=== PATIENT | female | born 1990 | race Caucasian/White ===

== ENCOUNTER 2022-03-16 07:33 | Inpatient (IN) ==
[2022-03-16] MEDS ORDERED: OXYTOCIN 30 UNITS/500 ML BAG IV PRN ×3 (07:52→23:28)
[2022-03-16 08:18] LABS: Hematocrit (blood only) 33.4 % (37-47); Hemoglobin 11.2 g/dL (12.0-16.0); Mean Corpuscular Hemoglobin 31.5 pg (25-34); Mean Corpuscular Hgb Conc 33.5 g/dL (32-36); Mean Corpuscular Volume 93.8 fL (80-100); Mean Platelet Volume 11.6 fL (7.4-10.4); Platelet Count 224 K/uL (130-400); RDW Coefficient of Variation 12.6 % (11.5-14.5); RDW Standard Deviation 43.2 fL (36.4-46.3); Red Blood Count 3.56 M/uL (4.2-5.4); White Blood Count 8.14 K/uL (4.8-10.8)
[2022-03-16] MEDS: LACTATED RINGER'S 1,000 ML IV PRN ×3 (09:17→19:35)
--- NOTE | 2022-03-16 09:22 | History & Physical Report ---
Date of Service March 16, 2022 Assessment & Plan (1) Encounter for induction of labor: (2) Chronic hypertension affecting : (3) resulting from in-vitro fertilization: Plan: admit, labs. chtn. fhts categ 1. start pitocin. plan reviewed. meds or dered. Admission and Anticipated Discharge Date Admission Date: March 16, 2022 History of Present Illness Chief Complaint: planned induction [facility] 31[facility] for planned induction for chtn. She is doing well today. Had johansen ripening balloon last pm and it fell out by midnight. Denies complaints. PNC c/b 1. CHTN 2. IVF 3. 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, spouse neg PNL rh pos, ri, gbs neg OBH: g1 GYNH: nl paps Allergies Allergy/AdvReac Type Severity Reaction Status Date / Time No Known Allergies Allergy Verified 03/15/22 10:39 Home Medications Medication Instructions Recorded Confirmed Type prenat.vits,grace,ify-nooz-xgqgg 1 tab PO DAILY 08/25/21 03/16/22 History sertraline 50 mg tablet (Zoloft) 50 mg PO DAILY 08/25/21 03/16/22 History aspirin 81 mg tablet,delayed 81 mg PO DAILY 01/26/22 03/16/22 History release (Adult Low Dose Aspirin) labetalol 200 mg tablet 300 mg PO BID tab 03/10/22 03/16/22 History Patient History Medical History (Updated 03/16/22 @ 09:20 by Romi Lora MD, FACOG) Anxiety and depression Gautam's disease Surgical History (Updated 08/30/21 @ 17:24 by Terri Atkinson MD) History of hysteroscopy S/P dilation and curettage S/P wisdom tooth extraction Family History (Updated 08/25/21 @ 13:58 by Keely Donato) Other Heart disease Thyroid disease Social History (Updated 08/25/21 @ 13:59 by Keely Donato) Smoking Status: Never smoker Hx Alcohol Use: No Hx Substance Use: No Preferred Language: Bulgarian Communication Ability: Effective 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 current occupational status: employed current occupation: government contractor Assistive Devices: None Review of Systems as per Subjective / HPI Physical Exam Constitutional: WD/WN, vitals as above Respiratory: normal respiratory effort, lungs clear to auscultation Cardiovascular: Rate/Rhythm: regular rate and regular rhythm Gastrointestinal (Abdomen): soft gravid nt efw 6-7# Musculoskeletal: no edema nontender calves Neurologic: grossly normal Psychiatric: A+Ox3, euthymic affect Genitourinary: Manual OB Exam: + cervical dilation (4), + cervical effacement 80%, + station -2 and + amniotic fluid (arom) clear OB Exam Monitor Tracing: + external FHT monitor used, + external uterine monitor used (q5), + category I and + normal FHT variability Results & Data ([facility]) Vital Signs (Past 12 Hours) Vital Signs Temp Pulse Resp BP 03/16/22 07:48 84 127/78 03/16/22 07:46 84 127/78 03/16/22 07:45 98.4 F 18 Coding Level of Care Code None Diagnoses Encounter for induction of labor Z34.90 Chronic hypertension affecting O10.919 resulting from in-vitro fertilization O09.819
--- NOTE | 2022-03-16 14:37 | Labor Progress Brief Note ---
Date of Service March 16, 2022 Subjective ctsp due to feeling pressure. Assessment & Plan (1) Chronic hypertension affecting : (2) Encounter for induction of labor: (3) resulting from in-vitro fertilization: Plan: c/w pit, no significant cx change. fhts categ 1. Admission and Anticipated Discharge Date Admission Date: March 16, 2022 Physical Exam Constitutional: WD/WN, vitals as above Genitourinary: Manual OB Exam: + cervical dilation (4), + cervical effacement 80% and + station -2 OB Exam Monitor Tracing: + external FHT monitor used, + external uterine monitor used (q3), + category I and + normal FHT variability Results & Data ([facility]) Vital Signs (Past 12 Hours) Vital Signs Temp Pulse Resp BP 03/16/22 13:39 97.9 F 80 18 125/76 03/16/22 13:30 20 03/16/22 12:39 97.9 F 76 141/91 H 03/16/22 12:33 20 03/16/22 12:00 18 03/16/22 11:41 67 125/85 03/16/22 11:30 20 03/16/22 11:20 97.9 F 18 03/16/22 11:00 18 03/16/22 10:28 80 130/82 03/16/22 09:22 81 140/87 03/16/22 07:48 84 127/78 03/16/22 07:46 84 127/78 03/16/22 07:45 98.4 F 18 Coding Level of Care Code None Diagnoses Chronic hypertension affecting O10.919 Encounter for induction of labor Z34.90 resulting from in-vitro fertilization O09.819
[2022-03-16] MEDS ORDERED: ePHEDrine sulfate 50 MG/ML AMP ONE (14:41)
[2022-03-16] MEDS ORDERED: fentaNYL citrate 100 MCG/2 ML VIAL ONE (14:42)
[2022-03-16] MEDS ORDERED: BUPIVACAINE 0.25% 30 ML VIAL ONE (14:42)
[2022-03-16] MEDS ORDERED: fentaNYL 2MCG/ML ROPIVACAINE 1.25MG/ML 100 ML BAG EPI ONE (14:42)
[2022-03-16] MEDS ORDERED: SODIUM CHLORIDE 0.9% INJ 10 ML VIAL ONE (14:42)
--- NOTE | 2022-03-16 15:07 | Anesthesiology Consultation ---
Date of Service March 16, 2022 Assessment & Plan (1) Encounter for pre-operative examination: Chart Review Chart Review: Acceptable Risk for Labor Epidural Consults Requested none ASA ASA2 Proposed Anesthesia Anesthesia Type: Labor Epidural Risk / Benefits Reviewed With: PT / POA / Parent / Guardian, Accepts Plan and Informed Consent Obtained History Height/Weight Height: 5 ft 1.5 in Weight: 91.682 kg Allergies Allergy/AdvReac Type Severity Reaction Status Date / Time No Known Allergies Allergy Verified 03/15/22 10:39 Medications Home Medications Medication Instructions Recorded Confirmed Last Taken prenat.vits,grace,lyu-tyng-seikp 1 tab PO DAILY 08/25/21 03/16/22 03/16/22 06:30 sertraline 50 mg tablet (Zoloft) 50 mg PO DAILY 08/25/21 03/16/22 03/16/22 06:30 aspirin 81 mg tablet,delayed 81 mg PO DAILY 01/26/22 03/16/22 03/15/22 18:45 release (Adult Low Dose Aspirin) labetalol 200 mg tablet 300 mg PO BID tab 03/10/22 03/16/22 03/16/22 06:30 Active Medications Generic Name Dose Route Start Last Admin Trade Name Freq PRN Reason Stop Dose Admin Oxytocin 30 units in 500 mls @ 9 mls/hr 03/16/22 07:53 03/16/22 12:33 Pitocin IV 03/18/22 07:52 0.54 units/hr .Q24H PRN 9 mls/hr Labor Induction/Augmentation Titration Protocol 0.54 UNITS/HR Lactated Ringer's 1,000 mls @ 125 mls/hr 03/16/22 07:52 03/16/22 14:51 Lr IV 03/18/22 07:51 999 mls/hr .Q8H PRN Administration L&D Protocol Protocol Past Medical History Medical History Anxiety and depression Gautam's disease Exercise / Class Metabolic Activity II 4-5 Yardwork/Stairs/Walk up hill Past Family History Family History Other Heart disease Thyroid disease Past Surgical History Surgical History History of hysteroscopy S/P dilation and curettage S/P wisdom tooth extraction Past Anesthesia History No Hx of Anesthesia Complications and No Family Hx of Anesthesia Complications History of PONV No Hx of PONV and No Hx of Motion Sickness Social History Smoking Status: Never smoker Hx Alcohol Use: No Hx Substance Use: No Physical Exam Vital Signs Last Vital Signs Temp 97.9 F 03/16/22 13:39 Pulse 80 03/16/22 13:39 Resp 18 03/16/22 13:39 BP 125/76 03/16/22 13:39 ENMT Mouth: no dentition abnormality Thyromental Distance: > or= 3.5 Finger Breadths Mallampati Class: II Neck normal visual inspection Respiratory normal respiratory effort Auscultation: lungs clear to auscultation bilaterally Cardiovascular Rate/Rhythm: regular rate and regular rhythm Testing Laboratory Results 03/16/22 08:02
[2022-03-16] MEDS ORDERED: diphenhydrAMINE 50 MG/ML VIAL IV PRN (15:45)
[2022-03-16] MEDS ORDERED: NALBUPHINE HCL INJ 10 MG/ML AMP IV PRN (15:45)
[2022-03-16] MEDS ORDERED: NALOXONE HCL 0.4 MG/1 ML VIAL/CARP IV PRN (15:45)
[2022-03-16] MEDS ORDERED: ONDANSETRON INJ 2 MG/ML 2 ML VIAL IV PRN (15:45)
[2022-03-16] MEDS ORDERED: fentaNYL 2MCG/ML ROPIVACAINE 1.25MG/ML 100 ML BAG EPI PRN (15:45)
[2022-03-16] MEDS ORDERED: NALOXONE HCL 1 MG in SODIUM CHLORIDE 0.9% 1000ML 1,000 ML IV PRN (15:45)
[2022-03-16] MEDS ORDERED: ePHEDrine sulfate 50 MG/ML AMP IV PRN (15:45)
--- NOTE | 2022-03-16 18:25 | Labor Progress Brief Note ---
Date of Service March 16, 2022 Subjective comfortable with epidural Assessment & Plan (1) Encounter for induction of labor: (2) resulting from in-vitro fertilization: (3) Chronic hypertension affecting : Plan: good cx change. fhts categ 1. c/w pit Admission and Anticipated Discharge Date Admission Date: March 16, 2022 Physical Exam Constitutional: WD/WN, vitals as above Genitourinary: Manual OB Exam: + cervical dilation 8 cm, + cervical effacement 100% and + station 0 OB Exam Monitor Tracing: + external FHT monitor used, + external uterine monitor used (q2-3), + category I and + normal FHT variability Results & Data ([facility]) Vital Signs (Past 12 Hours) Vital Signs Temp Pulse Resp BP Pulse Ox 03/16/22 18:20 84 98 03/16/22 18:15 78 97 03/16/22 18:12 93 H 115/69 03/16/22 18:10 68 98 03/16/22 18:05 78 97 03/16/22 18:00 71 96 03/16/22 17:56 76 107/57 L 03/16/22 17:55 71 96 03/16/22 17:50 65 97 03/16/22 17:45 66 16 94 03/16/22 17:42 63 108/59 L 03/16/22 17:40 69 94 03/16/22 17:35 67 96 03/16/22 17:30 98.2 F 79 16 96 03/16/22 17:27 66 103/59 L 03/16/22 17:25 62 97 03/16/22 17:20 82 97 03/16/22 17:15 70 16 96 03/16/22 17:12 74 99/57 L 03/16/22 17:10 73 95 03/16/22 17:05 73 95 03/16/22 17:00 73 16 96 03/16/22 16:57 72 101/56 L 03/16/22 16:55 74 95 03/16/22 16:50 73 96 03/16/22 16:45 73 18 98 03/16/22 16:43 73 129/57 L 03/16/22 16:42 72 122/63 03/16/22 16:40 80 99 03/16/22 16:35 74 99 03/16/22 16:30 68 18 95 03/16/22 16:29 73 94 03/16/22 16:26 66 131/79 03/16/22 16:25 74 95 03/16/22 16:20 67 97 03/16/22 16:15 70 18 98 03/16/22 16:11 72 131/79 03/16/22 16:10 70 97 03/16/22 16:08 62 127/77 03/16/22 16:05 66 122/78 97 03/16/22 16:03 64 130/77 03/16/22 16:00 68 18 99 03/16/22 15:59 83 121/83 03/16/22 15:56 78 125/77 03/16/22 15:55 75 96 03/16/22 15:53 81 130/77 03/16/22 15:50 79 122/75 96 03/16/22 15:47 76 125/83 03/16/22 15:45 97.5 F L 79 18 96 03/16/22 15:44 73 132/80 03/16/22 15:40 84 94 03/16/22 15:39 71 130/81 03/16/22 15:35 97 H 93 03/16/22 15:30 91 H 95 03/16/22 15:27 87 94 03/16/22 15:25 74 96 03/16/22 15:20 74 97 03/16/22 15:15 86 98 03/16/22 15:13 86 94 03/16/22 15:10 76 96 03/16/22 15:08 81 158/75 H 03/16/22 15:06 86 137/87 03/16/22 15:05 82 97 03/16/22 13:39 97.9 F 80 18 125/76 03/16/22 13:30 20 03/16/22 12:39 97.9 F 76 141/91 H 03/16/22 12:33 20 03/16/22 12:00 18 03/16/22 11:41 67 125/85 03/16/22 11:30 20 03/16/22 11:20 97.9 F 18 03/16/22 11:00 18 03/16/22 10:28 80 130/82 03/16/22 09:22 81 140/87 03/16/22 07:48 84 127/78 06/09/22 07:46 84 127/78 03/16/22 07:45 98.4 F 18 Coding Level of Care Code None Diagnoses Encounter for induction of labor Z34.90 resulting from in-vitro fertilization O09.819 Chronic hypertension affecting O10.919
--- NOTE | 2022-03-16 21:48 | Labor Progress Brief Note ---
Date of Service March 16, 2022 Subjective pt is pushing Assessment & Plan (1) resulting from in-vitro fertilization: (2) Chronic hypertension affecting : (3) Encounter for induction of labor: Plan: will cont with 2nd stage, fhts categ 1. Admission and Anticipated Discharge Date Admission Date: March 16, 2022 Physical Exam Constitutional: WD/WN, vitals as above Genitourinary: OB Exam Monitor Tracing: + external FHT monitor used, + external uterine monitor used (q2), + category I and + normal FHT variability Results & Data ([facility]) Vital Signs (Past 12 Hours) Vital Signs Temp Pulse Resp BP Pulse Ox 03/16/22 21:44 107 H 119/66 03/16/22 21:41 101 H 95 03/16/22 21:40 99 H 94 03/16/22 21:36 98 H 93 03/16/22 21:34 123 H 93 03/16/22 21:31 100 H 94 03/16/22 21:29 108 H 94 03/16/22 21:28 98.2 F 03/16/22 21:27 109 H 130/75 03/16/22 21:26 99 H 95 03/16/22 21:21 96 H 94 03/16/22 21:16 116 H 94 03/16/22 21:15 114 H 95 03/16/22 21:14 90 130/73 03/16/22 21:11 104 H 92 03/16/22 21:10 102 H 95 03/16/22 21:05 93 H 93 03/16/22 21:00 105 H 96 03/16/22 20:58 102 H 135/64 03/16/22 20:55 118 H 94 03/16/22 20:50 110 H 94 03/16/22 20:45 112 H 96 03/16/22 20:41 91 H 130/94 03/16/22 20:40 85 98 03/16/22 20:35 93 H 96 03/16/22 20:31 104 H 94 03/16/22 20:30 98.6 F 96 H 96 03/16/22 20:26 89 125/89 03/16/22 20:25 105 H 96 03/16/22 20:20 81 97 03/16/22 20:15 105 H 97 03/16/22 20:12 93 H 128/86 03/16/22 20:10 88 98 03/16/22 20:05 75 97 03/16/22 20:00 78 97 03/16/22 19:57 83 128/77 03/16/22 19:55 70 98 03/16/22 19:50 83 96 03/16/22 19:45 91 H 97 03/16/22 19:42 87 129/81 03/16/22 19:40 84 96 03/16/22 19:35 79 96 03/16/22 19:30 86 96 03/16/22 19:26 85 126/81 03/16/22 19:25 83 97 03/16/22 19:20 71 98 03/16/22 19:15 77 97 03/16/22 19:12 96 H 120/75 03/16/22 19:10 89 98 03/16/22 19:05 73 97 03/16/22 19:00 77 18 97 03/16/22 18:59 69 141/77 H 03/16/22 18:55 76 97 03/16/22 18:50 83 97 03/16/22 18:45 76 18 97 03/16/22 18:43 83 125/78 03/16/22 18:40 77 98 03/16/22 18:35 74 97 03/16/22 18:30 84 18 97 03/16/22 18:27 77 134/73 03/16/22 18:25 76 97 03/16/22 18:20 84 98 03/16/22 18:15 78 18 97 03/16/22 18:12 93 H 115/69 03/16/22 18:10 68 98 03/16/22 18:05 78 97 03/16/22 18:00 71 18 96 03/16/22 17:56 76 107/57 L 03/16/22 17:55 71 96 03/16/22 17:50 65 97 03/16/22 17:45 66 16 94 03/16/22 17:42 63 108/59 L 03/16/22 17:40 69 94 03/16/22 17:35 67 96 03/16/22 17:30 98.2 F 79 16 96 03/16/22 17:27 66 103/59 L 03/16/22 17:25 62 97 03/16/22 17:20 82 97 06/09/22 17:15 70 16 96 03/16/22 17:12 74 99/57 L 03/16/22 17:10 73 95 03/16/22 17:05 73 95 03/16/22 17:00 73 16 96 03/16/22 16:57 72 101/56 L 03/16/22 16:55 74 95 03/16/22 16:50 73 96 03/16/22 16:45 73 18 98 03/16/22 16:43 73 129/57 L 03/16/22 16:42 72 122/63 03/16/22 16:40 80 99 03/16/22 16:35 74 99 03/16/22 16:30 68 18 95 03/16/22 16:29 73 94 03/16/22 16:26 66 131/79 03/16/22 16:25 74 95 03/16/22 16:20 67 97 03/16/22 16:15 70 18 98 03/16/22 16:11 72 131/79 03/16/22 16:10 70 97 03/16/22 16:08 62 127/77 03/16/22 16:05 66 122/78 97 03/16/22 16:03 64 130/77 03/16/22 16:00 68 18 99 03/16/22 15:59 83 121/83 03/16/22 15:56 78 125/77 03/16/22 15:55 75 96 03/16/22 15:53 81 130/77 03/16/22 15:50 79 122/75 96 03/16/22 15:47 76 125/83 03/16/22 15:45 97.5 F L 79 18 96 03/16/22 15:44 73 132/80 03/16/22 15:40 84 94 03/16/22 15:39 71 130/81 03/16/22 15:35 97 H 93 03/16/22 15:30 91 H 95 03/16/22 15:27 87 94 03/16/22 15:25 74 96 03/16/22 15:20 74 97 03/16/22 15:15 86 98 03/16/22 15:13 86 94 03/16/22 15:10 76 96 03/16/22 15:08 81 158/75 H 03/16/22 15:06 86 137/87 03/16/22 15:05 82 97 03/16/22 13:39 97.9 F 80 18 125/76 03/16/22 13:30 20 03/16/22 12:39 97.9 F 76 141/91 H 03/16/22 12:33 20 03/16/22 12:00 18 03/16/22 11:41 67 125/85 03/16/22 11:30 20 03/16/22 11:20 97.9 F 18 03/16/22 11:00 18 03/16/22 10:28 80 130/82 Coding Level of Care Code None Diagnoses resulting from in-vitro fertilization O09.819 Chronic hypertension affecting O10.919 Encounter for induction of labor Z34.90
[2022-03-16] MEDS ORDERED: BUTORPHANOL TARTRATE 1 MG/ML VIAL ONE (23:02)
--- NOTE | 2022-03-16 23:13 | Delivery Summary ---
Vaginal Delivery Summary Date of Service March 16, 2022 Vaginal Delivery Summary and 2nd Degree LAC The patient dilated to complete and pushed to deliver a viable male Apgars 8 and 9 via over 2nd degree perineal laceration. Mild shoulder dystocia encountered relieved by Chris maneuvers. Mouth and nose bulb suctioned at perineum. Remaining shoulder and body delivered with ease. Infant was vigorous and crying at . Cord clamped at 3 minutes of life and to maternal abdomen where the cord was then doubly clamped and cut. Laceration repaired in layers with 3-0 vicryl in usual fashion. Cervix and sulci intact. Placenta delivered spontaneously and intact, three-vessel cord. Hemostasis not achieved with dilute pitocin and uterine massage and drainage of the bladder for approximately 50 cc under sterile conditions. Bleeding heavy and uterus swept x 2 with no evidence of retained placenta. Bimanual massage begun and 800mcg rectal cytotec given. BP taken and given result, hemabate readied and when uterine tone was still not adequate, hemabate im given. Bimanual massage continued and bleeding persisted and again uterus not contracted down adequately and so bakri balloon readied and placed and 500cc fluid instilled. FF at umbilicus. Tuttle catheter placed under sterile conditions. Laceration repair was notably intact. EBL 800 cc. Mother and baby in stable recovery. Circumstances and methods to relieve shoulder dystocia reviewed with couple and circumstances and methods to help hemorrhage reviewed. [facility] [place] Charge Delivery Type Details: and 2nd Degree LAC
[2022-03-16] MEDS: LABETALOL HCL 300 MG TAB PO SCH (23:15)
[2022-03-16] MEDS ORDERED: bisacodyL 10 MG SUPP PR PRN (23:28)
[2022-03-16] MEDS ORDERED: HYDROCORTISONE ACETATE 25 MG SUPP PR PRN (23:28)
[2022-03-16] MEDS ORDERED: DIPHTHERIA/TETANUS/PERTUSSIS 0.5 ML SYR/VIAL IM ONE (23:28)
[2022-03-16] MEDS ORDERED: BENZOCAINE 20% AER SPR 82.5 GM CAN EXT PRN (23:28)
[2022-03-16] MEDS ORDERED: BUTORPHANOL TARTRATE 1 MG/ML VIAL IV STA (23:28)
[2022-03-16] MEDS ORDERED: ACETAMINOPHEN 325 MG TAB PO PRN (23:28)
[2022-03-16] MEDS ORDERED: miSOPROStoL 200 MCG TAB PR ONE (23:28)
[2022-03-16] MEDS ORDERED: CARBOPROST TROMETHAMINE 250 MCG/ML AMPUL IM ONE (23:28)
--- NOTE | 2022-03-16 23:37 | Anesthesia Procedure Note ---
Date of Service March 16, 2022 Anesthesia Post Epidural Note Vital Signs Vital Signs: Temp Pulse Resp BP Pulse Ox 98.2 F 76 18 155/67 H 96 03/16/22 21:28 03/16/22 23:35 03/16/22 19:00 03/16/22 23:35 03/16/22 23:31 Pain Intensity Abdomen: Pain Intensity: 3 Notes Mental Status: alert / awake / arousable and participated in evaluation Nausea / Vomiting: adequately controlled Pain: adequately controlled Airway Patency, RR, SpO2: stable & adequate BP & HR: stable & adequate Hydration State: stable & adequate Neuraxial Anesthesia: was administered and sensory block is resolving Anesthetic Complications: no major complications apparent and Pt Satisfied with anesthetic care Epidural: Removed without complications and With tip intact
[2022-03-16] MEDS: IBUPROFEN 600 MG TAB PO PRN (23:47)
[2022-03-16] MEDS: oxyCODONE/ACETAMINOPHEN 5mg/325mg TAB PO PRN (23:48)
[2022-03-17 00:07] LABS: Hematocrit (blood only) 30.8 % (37-47); Hemoglobin 10.7 g/dL (12.0-16.0)
[2022-03-17] MEDS: ceFAZolin 2000MG 2,000 MG/15 ML SYR IV SCH ×3 (01:01→17:20)
[2022-03-17] MEDS: OXYTOCIN 20 UNITS in LACTATED RINGER'S 1,000 ML IV SCH ×3 (01:01→17:19)
[2022-03-17] MEDS: oxyCODONE/ACETAMINOPHEN 5mg/325mg TAB PO PRN (04:23)
[2022-03-17] MEDS: IBUPROFEN 600 MG TAB PO PRN ×3 (04:23→17:47)
[2022-03-17] MEDS ORDERED: SODIUM CHLORIDE 0.9% 250 ML IV PRN (04:50)
[2022-03-17 06:30] LABS: Hematocrit (blood only) 27.2 % (37-47); Hemoglobin 9.3 g/dL (12.0-16.0); Mean Corpuscular Hemoglobin 31.7 pg (25-34); Mean Corpuscular Hgb Conc 34.2 g/dL (32-36); Mean Corpuscular Volume 92.8 fL (80-100); Mean Platelet Volume 11.6 fL (7.4-10.4); Platelet Count 221 K/uL (130-400); RDW Coefficient of Variation 12.7 % (11.5-14.5); RDW Standard Deviation 43.2 fL (36.4-46.3); Red Blood Count 2.93 M/uL (4.2-5.4)
--- NOTE | 2022-03-17 06:47 | Obstetrical Progress Note ---
Date of Service March 17, 2022 Assessment & Plan (1) examination following vaginal delivery: (2) hemorrhage: stable, doing well this am. bakri continues, 12hr at 11am. will allow oncoming md to decide removal timing. kefzol x 3 doses planned. hgb is approx 9. allow normal diet. Subjective Voiding: johansen catheter in place Diet Tolerance:: regular diet Lochia:: Small Feeding Type:: breast feeding (hand expressing, planning to pump only) feeling well overall. minimal blood in bakri bag Constitutional: + as per Subjective / HPI Physical Exam Constitutional WD/WN, vitals as above Respiratory normal respiratory effort, lungs clear to auscultation Cardiovascular Rate/Rhythm: regular rate and regular rhythm Gastrointestinal (Abdomen) Inspection/Auscultation: abdomen normal to inspection Percussion/Palpation: abdomen soft Fundus firm at umbilicus Musculoskeletal nt calves tr edema Neurologic grossly normal Psychiatric A+Ox3, euthymic affect Results & Data ([facility]) Vital Signs (Past 12 Hours) Vital Signs Temp Pulse Resp BP Pulse Ox 03/17/22 06:12 97.9 F 16 03/17/22 05:53 69 120/80 03/17/22 04:20 80 89 L 03/17/22 04:16 76 96 03/17/22 04:11 88 97 03/17/22 04:06 75 97 03/17/22 04:01 77 95 03/17/22 04:00 97.9 F 16 03/17/22 03:56 83 126/74 96 03/17/22 03:51 82 95 03/17/22 03:46 81 97 03/17/22 03:41 85 96 03/17/22 03:36 85 97 03/17/22 03:31 78 96 03/17/22 03:26 76 97 03/17/22 03:21 83 96 03/17/22 03:16 80 97 03/17/22 03:11 76 95 03/17/22 03:06 79 96 03/17/22 03:01 80 97 03/17/22 02:56 72 123/77 96 03/17/22 02:51 73 95 03/17/22 02:46 75 95 03/17/22 02:41 77 95 03/17/22 02:36 72 96 03/17/22 02:31 75 95 03/17/22 02:26 73 95 03/17/22 02:21 76 94 03/17/22 02:16 79 96 03/17/22 02:11 81 97 03/17/22 02:06 68 98 03/17/22 02:01 66 96 03/17/22 01:56 62 113/63 96 03/17/22 01:51 66 97 03/17/22 01:46 72 97 03/17/22 01:41 72 97 03/17/22 01:36 69 98 03/17/22 01:31 72 97 03/17/22 01:26 82 95 03/17/22 01:21 80 94 03/17/22 01:16 78 93 03/17/22 01:11 84 94 03/17/22 01:06 74 94 03/17/22 01:01 79 93 03/17/22 00:56 77 94 03/17/22 00:51 79 94 03/17/22 00:50 80 128/65 03/17/22 00:46 77 94 03/17/22 00:41 73 93 03/17/22 00:36 76 93 03/17/22 00:35 73 145/71 H 03/17/22 00:31 76 94 03/17/22 00:26 79 93 03/17/22 00:21 78 94 03/17/22 00:20 98.2 F 76 16 139/65 03/17/22 00:19 74 90 03/17/22 00:16 80 95 03/17/22 00:11 84 95 03/17/22 00:06 75 143/67 H 100 03/17/22 00:05 16 03/17/22 00:01 71 96 03/16/22 23:56 88 95 03/16/22 23:51 76 93 03/16/22 23:50 98.2 F 72 16 147/75 H 03/16/22 23:46 83 97 03/16/22 23:41 78 97 03/16/22 23:38 77 88 L 03/16/22 23:36 75 95 03/16/22 23:35 76 155/67 H 03/16/22 23:31 73 96 03/16/22 23:30 78 88 L 03/16/22 23:26 78 95 03/16/22 23:22 79 89 L 03/16/22 23:21 84 95 03/16/22 23:20 73 18 154/72 H 03/16/22 23:16 75 92 03/16/22 23:13 73 92 03/16/22 23:11 80 96 03/16/22 23:06 90 97 03/16/22 23:05 92 H 18 152/80 H 03/16/22 23:01 90 95 03/16/22 22:57 111 H 93 03/16/22 22:56 95 H 97 03/16/22 22:52 100 H 94 03/16/22 22:51 103 H 95 03/16/22 22:50 98.2 F 97 H 20 145/76 H 03/16/22 22:46 86 96 03/16/22 22:41 111 H 94 03/16/22 22:36 107 H 97 03/16/22 22:32 95 H 93 03/16/22 22:31 97 H 93 03/16/22 22:27 112 H 94 03/16/22 22:26 87 95 03/16/22 22:21 100 H 93 03/16/22 22:16 105 H 94 03/16/22 22:13 105 H 136/85 03/16/22 22:11 90 95 03/16/22 22:06 101 H 92 03/16/22 22:03 93 H 93 03/16/22 22:01 99 H 95 03/16/22 21:58 108 H 139/84 03/16/22 21:56 109 H 93 03/16/22 21:51 96 H 92 03/16/22 21:46 114 H 93 03/16/22 21:44 107 H 119/66 03/16/22 21:41 101 H 95 03/16/22 21:40 99 H 94 03/16/22 21:36 98 H 93 03/16/22 21:34 123 H 93 03/16/22 21:31 100 H 94 03/16/22 21:29 108 H 94 03/16/22 21:28 98.2 F 03/16/22 21:27 109 H 130/75 03/16/22 21:26 99 H 95 03/16/22 21:21 96 H 94 03/16/22 21:16 116 H 94 03/16/22 21:15 114 H 95 03/16/22 21:14 90 130/73 03/16/22 21:11 104 H 92 03/16/22 21:10 102 H 95 03/16/22 21:05 93 H 93 03/16/22 21:00 105 H 96 03/16/22 20:58 102 H 135/64 03/16/22 20:55 118 H 94 03/16/22 20:50 110 H 94 03/16/22 20:45 112 H 96 03/16/22 20:41 91 H 130/94 03/16/22 20:40 85 98 03/16/22 20:35 93 H 96 03/16/22 20:31 104 H 94 03/16/22 20:30 98.6 F 96 H 96 03/16/22 20:26 89 125/89 03/16/22 20:25 105 H 96 03/16/22 20:20 81 97 03/16/22 20:15 105 H 97 03/16/22 20:12 93 H 128/86 03/16/22 20:10 88 98 03/16/22 20:05 75 97 03/16/22 20:00 78 97 03/16/22 19:57 83 128/77 03/16/22 19:55 70 98 03/16/22 19:50 83 96 03/16/22 19:45 91 H 97 03/16/22 19:42 87 129/81 03/16/22 19:40 84 96 03/16/22 19:35 79 96 03/16/22 19:30 86 96 03/16/22 19:26 85 126/81 03/16/22 19:25 83 97 03/16/22 19:20 71 98 03/16/22 19:15 77 97 03/16/22 19:12 96 H 120/75 03/16/22 19:10 89 98 03/16/22 19:05 73 97 03/16/22 19:00 77 18 97 03/16/22 18:59 69 141/77 H 03/16/22 18:55 76 97 03/16/22 18:50 83 97 03/16/22 18:45 76 18 97
[2022-03-17] MEDS: DOCUSATE SODIUM 100 MG CAP PO SCH ×2 (08:43→21:51)
[2022-03-17] MEDS: LABETALOL HCL 300 MG TAB PO SCH ×2 (08:43→21:51)
[2022-03-17] MEDS: PRENATAL VITAMIN 1 TAB PO SCH (08:43)
[2022-03-17] MEDS: SERTRALINE HCL 50 MG TABLET PO SCH (08:43)
[2022-03-18] MEDS: IBUPROFEN 600 MG TAB PO PRN (06:21)
[2022-03-18] MEDS: LABETALOL HCL 300 MG TAB PO SCH (08:41)
[2022-03-18] MEDS: PRENATAL VITAMIN 1 TAB PO SCH (08:41)
[2022-03-18] MEDS: SERTRALINE HCL 50 MG TABLET PO SCH (08:41)
[2022-03-18] MEDS: DOCUSATE SODIUM 100 MG CAP PO SCH (08:41)
--- NOTE | 2022-03-18 09:07 | Obstetrical Progress Note ---
Date of Service March 18, 2022 Assessment & Plan (1) examination following vaginal delivery: Plan: 31 yo PPD 2 s/p at 39 weeks. Complicated by PPH requiring bakri/johansen. -Continue routine care -Vitals reviewed- HDS, afebrile -GBS neg -bakri and johansen removed yesterday -Encourage ambulation, regular diet -Pain control with ibuprofen, acetaminophen PRN -Encourage -Hgb 9.3, stable (2) Chronic hypertension affecting : Plan: -HTN dx at ~16 weeks gestation and put on labetalol 300mg po bid -BPs stable, continue current dosing -f/u 1 wk OB clinic for BP check (3) hemorrhage: Admission and Anticipated Discharge Date Admission Date: March 16, 2022 Supervising Physician Co-Signing Physician Notes Resident Physician Supervision Note: I interviewed and examined the patient. Discussed with Dr. Irwin and agree with findings and plan as documented in the note. Any exceptions or clarifications are listed here: Documented By: Yashira De Paz MD, FACOG Subjective Ambulation: yes Voiding: yes, johansen removed yesterday Passing Gas: yes BM: no Diet Tolerance: regular, denies N/V Lochia: small Feeding Type: pumping Current Pain Level(1-10): 2 Review of Systems Review of Systems: Denies fevers/chills. Denies dyspnea, cough. Denies chest pain. Denies dysuria. Denies headache. Denies back pain. Physical Exam Physical Exam: General: Alert, oriented, no acute distress Cardiac: Regular rate and rhythm, normal S1, S2. No murmurs appreciated. Respiratory: Clear to auscultation b/l with good air flow entry, symmetric chest rise and fall. No wheezes or crackles. No increased work of breathing or accessory muscle use Abdomen: Soft, nontender, nondistended. Fundus firm and palpable at umbilicus. No guarding or rebound. Skin: No rashes or lesions Extremities: Warm, dry, well-perfused with capillary refill <2s b/l. No lower extremity edema, erythema or swelling. Negative Norma's sign b/l. Results & Data ([facility]) Vital Signs (Past 12 Hours) Vital Signs Temp Pulse Resp BP Pulse Ox 03/17/22 23:55 36.9 C 71 18 117/79 96 Resident Activity Tracking Resident Involvement: Resident Care Provided Care Provided: OB Delivery
== END 2022-03-18 14:00 | disposition home or self-care (01) | DRG 768 ==
LOC: 4S1 07:33 → 4E2 03-17 18:54